=== PATIENT | male | born 1945 | race Caucasian/White ===

== ENCOUNTER 2023-06-24 13:21 | Outpatient (CLI) | payer BC, MEDICARE | END 2023-06-24 13:22 | disposition home or self-care (01) | LOC: CSHMRI 13:21 | PROVIDERS: ATTEND Urology | DX: C61 Malignant neoplasm of prostate (principal); N42.32 Atypical small acinar proliferation of prostate; N40.2 Nodular prostate without lower urinary tract symptoms; Z90.79 Acquired absence of other genital organ(s); N42.9 Disorder of prostate, unspecified | CPT/HCPCS: 72197; 82565 ==